=== PATIENT | female | born 1975 | race Caucasian/White ===

== ENCOUNTER → 2017-08-30 16:09 | Outpatient (CLI) | payer OTHER, MEDICAID, SELFPAY ==
[2017-08-30 17:12] LABS: Appearance Urine UA CLEAR; Bilirubin Urine UA NEGATIVE (NEGATIVE); Color Urine UA YELLOW; Glucose Urine UA NEGATIVE (Normal); Ketones Urine UA NEGATIVE (NEGATIVE); Leukocyte Esterase Urine UA TRACE (NEGATIVE); Nitrite Urine UA NEGATIVE (NEGATIVE); Occult Blood Urine UA NEGATIVE (Negative); Protein Urine UA NEGATIVE (Negative); Specific Gravity Urine UA 1.015 (1.000-1.035); Urobilinogen Urine UA 0.2 E.U./dL (0.2); pH Urine UA 6.5 (4.5-8.0)
[2017-08-30 17:23] LABS: Bacteria Urine None Seen; Culture Indicated Urine Cult Not Indicated; RBC Urine 0-1/HPF (0-5/HPF); Squamous Epithelial Cell Urine 1-5 /HPF; WBC Urine 1-5/HPF (0-5/HPF)
== END ==
PROVIDERS: PCP Family Medicine; Visit Provider Family Medicine
DX: R30.9 Painful micturition, unspecified (principal)
CPT/HCPCS: 81001

== ENCOUNTER → 2018-01-26 07:51 | Outpatient (CLI) | payer OTHER, MEDICAID, SELFPAY ==
[2018-01-26 08:32] LABS: Add Manual Diff / Slide Review NO; Basophils Percent Auto 1.4 % (0-2); Eosinophils Percent Auto 2.9 % (2-4); Hematocrit 36.3 % (36-46); Hemoglobin 12.2 g/dL (12.0-16.0); Lymphocytes Percent Auto 44.3 % (25-40); Mean Corpuscular HGB Conc 33.5 % (30-36); Mean Corpuscular Hemoglobin 29.1 PG (26-34); Mean Corpuscular Volume 86.8 fL (80-100); Monocytes Percent Auto 9.9 % (3-14); Neutrophils Absolute Auto 1700 /uL (3000-5900); Neutrophils Percent Auto 41.5 % (50-75); Platelet Count 180 X10^3/uL (150-400); Red Blood Cell Count 4.18 X10^6/uL (4.0-5.2); Red Cell Distribution Width 16.1 % (11.6-14.8); White Blood Cell Count 4.1 X10^3/uL (4.5-11.0)
[2018-01-26 08:57] LABS: Alanine Aminotransferase 25 IU/L (9-52); Albumin 4.2 g/dL (3.5-5.0); Albumin Globulin Ratio 1.6 (1.0-2.8); Alkaline Phosphatase 35 U/L (38-126); Aspartate Aminotransferase 23 IU/L (14-36); BUN Creatinine Ratio 17.1 (6-22); Bilirubin Total 0.6 mg/dL (0.2-1.3); Blood Urea Nitrogen 12 mg/dL (7-17); Calcium 8.7 mg/dL (8.4-10.2); Carbon Dioxide 30 mmol/L (22-32); Chloride 103 mmol/L (98-107); Cholesterol 131 mg/dL (140-199); Estimated Glomerular Filt Rate > 60.0 mL/min (>60); Globulin 2.7 g/dL (1.7-4.1); Glucose 85 mg/dL (70-100); HDL Cholesterol 62 mg/dL (40-60); HEMOLYSIS < 15 (0-50); LDL Cholesterol Calculated 62 mg/dL (<100); Potassium 4.4 mmol/L (3.4-5.1); Sodium 142 mmol/L (137-145); Total Protein 6.9 g/dL (6.3-8.2); Triglycerides 37 mg/dL (35-150)
[2018-01-26 09:37] LABS: TSH w/ Reflex to FT4 0.98 uIU/mL (0.47-4.68)
== END ==
PROVIDERS: PCP Family Medicine; Visit Provider Family Medicine
DX: K51.90 Ulcerative colitis, unspecified, without complications (principal); Z00.00 Encounter for general adult medical examination without abnormal findings
CPT/HCPCS: 36415; 80053; 80061; 84443; 85025

== ENCOUNTER → 2018-02-25 17:06 | Outpatient (CLI) | payer OTHER, MEDICAID, SELFPAY | PROVIDERS: Family Provider Obstetrics & Gynecology; PCP Family Medicine; Visit Provider Family Medicine | DX: N92.6 Irregular menstruation, unspecified (principal) | CPT/HCPCS: 36415; 83001; 83002 ==

== ENCOUNTER → 2018-03-08 11:48 | Outpatient (CLI) | payer OTHER, MEDICAID, SELFPAY ==
--- NOTE | 2018-03-08 11:50 | DI.MG.S_ITS ---
BILATERAL DIGITAL SCREENING MAMMOGRAM 3D/2D WITH CAD: 03/08/2018 CLINICAL: Routine screening. Comparison is made to exam dated: 11/20/2016 [facility]. The tissue of both breasts is extremely dense, which lowers the sensitivity of mammography. Current study was also evaluated with a Computer Aided Detection (CAD) system. No significant masses, calcifications, or other findings are seen in either breast. There has been no significant interval change. IMPRESSION: NEGATIVE There is no mammographic evidence of malignancy. A 1 year screening mammogram is recommended. This exam was interpreted at Station ID: [id number]. NOTE: For mammograms, a report in lay terms will be sent to the patient. Approximately 15% of breast malignancies will not be visualized mammographically. In the management of a palpable breast mass, a negative mammogram must not discourage biopsy of a clinically suspicious lesion. Electronically Signed By: Reji elizabeth/vandana:03/08/2018 20:45:46 copy to: Jeremy Greene letter sent: Normal Exam ACR BI-RADS Category 1: Negative 3341F
[2018-03-10 16:05] LABS: Progesterone 9.9 ng/mL
== END ==
PROVIDERS: PCP Family Medicine; Visit Provider Family Medicine
DX: Z12.31 Encounter for screening mammogram for malignant neoplasm of breast (principal); N92.6 Irregular menstruation, unspecified
CPT/HCPCS: 36415; 77063; 77067; 84144

== ENCOUNTER → 2018-05-25 10:12 | Outpatient (CLI) | payer OTHER, SELFPAY ==
[2018-05-25 11:00] LABS: Appearance Urine UA CLEAR; Bilirubin Urine UA NEGATIVE (NEGATIVE); Color Urine UA YELLOW; Glucose Urine UA NEGATIVE (Negative); Ketones Urine UA NEGATIVE (NEGATIVE); Leukocyte Esterase Urine UA NEGATIVE (NEGATIVE); Nitrite Urine UA NEGATIVE (Negative); Occult Blood Urine UA NEGATIVE (Negative); Protein Urine UA NEGATIVE (Negative); Urobilinogen Urine UA 0.2 E.U./dL (0.2); pH Urine UA 7.5 (4.5-8.0)
== END ==
PROVIDERS: PCP Family Medicine; Visit Provider Family Medicine
DX: R30.0 Dysuria (principal)
CPT/HCPCS: 81003

== ENCOUNTER → 2019-02-03 07:49 | Outpatient (CLI) | payer OTHER, SELFPAY ==
[2019-02-03 08:20] LABS: Add Manual Diff / Slide Review NO; Basophils Absolute Auto 100 /uL (0-100); Basophils Percent Auto 1.3 % (0-2); Eosinophils Absolute Auto 100 /uL (0-450); Eosinophils Percent Auto 3.4 % (2-4); Hematocrit 37.2 % (36-46); Hemoglobin 12.5 g/dL (12.0-16.0); Lymphocytes Absolute Auto 1600 /uL (1100-4500); Mean Corpuscular HGB Conc 33.6 % (30-36); Mean Corpuscular Hemoglobin 29.3 PG (26-34); Mean Corpuscular Volume 87.4 fL (80-100); Monocytes Absolute Auto 400 /uL (0-900); Monocytes Percent Auto 9.6 % (3-14); Neutrophils Absolute Auto 1700 /uL (1500-7000); Neutrophils Percent Auto 43.7 % (50-75); Platelet Count 193 X10^3/uL (150-400); Red Blood Cell Count 4.26 X10^6/uL (4.0-5.2); Red Cell Distribution Width 15.8 % (11.6-14.8); White Blood Cell Count 3.9 X10^3/uL (4.5-11.0)
[2019-02-03 08:33] LABS: Erythrocyte Sedimentation Rate 9 MM/HR (0-20)
[2019-02-03 08:38] LABS: Alanine Aminotransferase 29 IU/L (9-52); Albumin 4.1 g/dL (3.5-5.0); Albumin Globulin Ratio 1.3 (1.0-2.8); Alkaline Phosphatase 36 U/L (38-126); Aspartate Aminotransferase 31 IU/L (14-36); BUN Creatinine Ratio 12.9 (6-22); Bilirubin Total 0.9 mg/dL (0.2-1.3); Blood Urea Nitrogen 9 mg/dL (7-17); Calcium 8.8 mg/dL (8.4-10.2); Carbon Dioxide 28 mmol/L (22-32); Chloride 102 mmol/L (98-107); Estimated Glomerular Filt Rate > 60.0 mL/min (>60); Globulin 3.1 g/dL (1.7-4.1); Glucose 88 mg/dL (70-100); HEMOLYSIS < 15 (0-50); Potassium 4.3 mmol/L (3.4-5.1); Sodium 139 mmol/L (137-145); Total Protein 7.2 g/dL (6.3-8.2)
[2019-02-03 09:06] LABS: Follicle Stimulating Hormone 8.77 mIU/mL
[2019-02-03 09:22] LABS: Vitamin B12 528 pg/mL (239-931)
[2019-02-03 09:23] LABS: Vitamin D 25 Hydroxy (D3) 66.2 ng/mL (30.0-100.0)
[2019-02-03 09:25] LABS: TSH w/ Reflex to FT4 1.17 uIU/mL (0.47-4.68)
[2019-02-03 09:32] LABS: C-Reactive Protein Quant < 0.5 mg/dL (<1.0)
== END ==
PROVIDERS: PCP Family Medicine; Visit Provider Family Medicine
DX: K51.90 Ulcerative colitis, unspecified, without complications (principal); K52.9 Noninfective gastroenteritis and colitis, unspecified; Z79.899 Other long term (current) drug therapy
CPT/HCPCS: 36415; 80053; 82306; 82607; 83001; 83002; 84443; 85025; 85651; 86140

== ENCOUNTER → 2019-09-18 15:00 | Outpatient (CLI) | payer OTHER, SELFPAY ==
[2019-09-20 08:36] LABS: COVID19 Sendout Not Detected (Not Detected)
== END ==
PROVIDERS: PCP Family Medicine; Visit Provider Registered Nurse
DX: J02.9 Acute pharyngitis, unspecified (principal)
CPT/HCPCS: 87635

== ENCOUNTER → 2020-01-29 10:47 | Outpatient (CLI) | payer OTHER, SELFPAY ==
--- NOTE | 2020-01-29 10:48 | DI.MG.S_ITS ---
BILATERAL DIGITAL SCREENING MAMMOGRAM 3D/2D WITH CAD: 01/29/2020 CLINICAL: Routine screening. Comparison is made to exams dated: 03/08/2018 mammogram and 11/20/2016 mammogram - [facility]. The tissue of both breasts is extremely dense, which lowers the sensitivity of mammography. Current study was also evaluated with a Computer Aided Detection (CAD) system. No significant masses, calcifications, or other findings are seen in either breast. There has been no significant interval change. IMPRESSION: NEGATIVE There is no mammographic evidence of malignancy. A 1 year screening mammogram is recommended. This exam was interpreted at Station ID: [id number]. NOTE: For mammograms, a report in lay terms will be sent to the patient. Approximately 15% of breast malignancies will not be visualized mammographically. In the management of a palpable breast mass, a negative mammogram must not discourage biopsy of a clinically suspicious lesion. Electronically Signed By: Devante koroma/vandana:01/29/2020 15:47:50 copy to: Jeremy Greene letter sent: Normal Exam ACR BI-RADS Category 1: Negative 3341F
== END ==
PROVIDERS: PCP Family Medicine; Referring Provider Obstetrics & Gynecology; Visit Provider Obstetrics & Gynecology
DX: Z12.31 Encounter for screening mammogram for malignant neoplasm of breast (principal)
CPT/HCPCS: 77063; 77067

== ENCOUNTER → 2020-07-18 11:23 | Outpatient (CLI) | payer OTHER, SELFPAY ==
[2020-07-18] MEDS: COVID-19 VACC, Ad26(JANSSEN)/PF 0.5 ML IM (11:30)
== END ==
PROVIDERS: PCP Family Medicine; Visit Provider Internal Medicine
DX: Z23 Encounter for immunization (principal)
CPT/HCPCS: 0031A; 91303

== ENCOUNTER → 2020-11-26 15:26 | Outpatient (CLI) | payer OTHER, SELFPAY ==
--- NOTE | 2020-11-26 15:28 | DI.US.S_ITS ---
PROCEDURE: US PELVIC COMPLETE INDICATIONS: DYSFUNCTIONAL BLEEDING TECHNIQUE: Real-time scanning was performed of the pelvic organs, with image documentation. Additional endovaginal scanning was necessary due to incomplete visualization of the adnexal and endometrial structures by transabdominal scanning. COMPARISON: [facility], , PELVIC COMPLETE, 11/09/2016, 13:40. FINDINGS: Uterus: Uterus is normal in size at 8.2 x 4.7 x 5.7 cm. The endometrium measures 6.6 mm in combined thickness. Submucosal fibroid measuring 6 mm. Intramural fibroid measuring 9 mm. Subserosal fibroid measuring 3.9 cm. Ovaries: 1.8 cm dominant left follicular cyst; otherwise the ovaries are normal bilaterally. No adnexal masses seen. Other: No pathologic free abdominal or pelvic fluid. IMPRESSION: 3 fibroids, largest measuring up to 3.9 cm. Dictated by: Toribio GILBERT Interpreted: Juanito Bains MD on 11/26/2020 at 16:19 Transcribed by: ALBERT on 11/26/2020 at 16:20 Approved by: Eric Lantigua M.D. on 11/27/2020 at 13:36
== END ==
PROVIDERS: PCP Family Medicine; Referring Provider Obstetrics & Gynecology; Visit Provider Obstetrics & Gynecology
DX: N93.8 Other specified abnormal uterine and vaginal bleeding (principal); N92.1 Excessive and frequent menstruation with irregular cycle; D25.1 Intramural leiomyoma of uterus; D25.0 Submucous leiomyoma of uterus; D25.2 Subserosal leiomyoma of uterus
CPT/HCPCS: 76830; 76856

== ENCOUNTER → 2021-03-23 14:54 | Outpatient (CLI) | payer OTHER, SELFPAY ==
[2021-03-23 15:32] LABS: COVID19 -Nasal RAPID Negative (Negative)
== END ==
PROVIDERS: PCP Family Medicine; Visit Provider Nurse Practitioner Family
DX: Z20.822 Contact with and (suspected) exposure to COVID-19 (principal)
CPT/HCPCS: 87635

== ENCOUNTER → 2021-04-06 10:26 | Outpatient (CLI) | payer OTHER, SELFPAY ==
[2021-04-06 11:11] LABS: COVID19 -Nasal RAPID POSITIVE (Negative)
== END ==
PROVIDERS: PCP Family Medicine; Referring Provider Physician Assistant; Visit Provider Physician Assistant
DX: Z20.822 Contact with and (suspected) exposure to COVID-19 (principal); J02.9 Acute pharyngitis, unspecified
CPT/HCPCS: 87635

== ENCOUNTER → 2021-10-08 07:22 | Outpatient (CLI) | payer OTHER, SELFPAY ==
[2021-10-08 08:14] LABS: Add Manual Diff / Slide Review NO; Basophils Absolute Auto 100 /uL (0-100); Basophils Percent Auto 1.1 % (0-2); Eosinophils Absolute Auto 200 /uL (0-450); Eosinophils Percent Auto 5.5 % (2-4); Hematocrit 37.6 % (36-46); Hemoglobin 12.8 g/dL (12.0-16.0); Lymphocytes Absolute Auto 1800 /uL (1100-4500); Lymphocytes Percent Auto 39.4 % (25-40); Mean Corpuscular HGB Conc 34.1 % (30-36); Mean Corpuscular Hemoglobin 30.3 PG (26-34); Mean Corpuscular Volume 88.6 fL (80-100); Monocytes Absolute Auto 500 /uL (0-900); Monocytes Percent Auto 10.5 % (3-14); Neutrophils Absolute Auto 1900 /uL (1500-7000); Neutrophils Percent Auto 43.5 % (50-75); Platelet Count 160 X10^3/uL (150-400); Red Blood Cell Count 4.24 X10^6/uL (4.0-5.2); Red Cell Distribution Width 15.2 % (11.6-14.8); White Blood Cell Count 4.5 X10^3/uL (4.5-11.0)
[2021-10-08 08:41] LABS: Alanine Aminotransferase 16 IU/L (<35); Albumin 3.9 g/dL (3.5-5.0); Albumin Globulin Ratio 1.3 (1.0-2.8); Alkaline Phosphatase 39 U/L (38-126); Aspartate Aminotransferase 23 IU/L (14-36); BUN Creatinine Ratio 15.7 (6-22); Bilirubin Total 0.5 mg/dL (0.2-1.3); Blood Urea Nitrogen 11 mg/dL (7-17); Calcium 8.4 mg/dL (8.4-10.2); Carbon Dioxide 27 mmol/L (22-32); Chloride 102 mmol/L (98-107); Cholesterol 151 mg/dL (140-199); Estimated Glomerular Filt Rate > 60 mL/min (>60); Globulin 2.9 g/dL (1.7-4.1); Glucose 84 mg/dL (70-100); HDL Cholesterol 80 mg/dL (40-60); HEMOLYSIS < 15 (0-50); LDL Cholesterol Calculated 58 mg/dL (<100); Potassium 4.2 mmol/L (3.4-5.1); Sodium 136 mmol/L (137-145); Total Protein 6.8 g/dL (6.3-8.2); Triglycerides 67 mg/dL (35-150)
== END ==
PROVIDERS: PCP Family Medicine; Referring Provider Physician Assistant; Visit Provider Physician Assistant
DX: Z13.220 Encounter for screening for lipoid disorders (principal); K51.90 Ulcerative colitis, unspecified, without complications
CPT/HCPCS: 36415; 80053; 80061; 85025

== ENCOUNTER → 2021-11-08 10:28 | Outpatient (CLI) | payer OTHER, SELFPAY ==
[2021-11-08 11:44] LABS: TSH w/ Reflex to FT4 1.04 uIU/mL (0.47-4.68)
[2021-11-08 12:02] LABS: Vitamin B12 415 pg/mL (239-931)
[2021-11-27 17:06] LABS: Vitamin D 25 Hydroxy (D3) 75.6 ng/mL (30.0-100.0)
== END ==
PROVIDERS: PCP Family Medicine; Referring Provider Physician Assistant; Visit Provider Physician Assistant
DX: E55.9 Vitamin D deficiency, unspecified (principal); K51.90 Ulcerative colitis, unspecified, without complications; R53.83 Other fatigue
CPT/HCPCS: 36415; 82306; 82607; 84443

== ENCOUNTER → 2022-01-10 11:01 | Outpatient (CLI) | payer OTHER, SELFPAY ==
[2022-01-10 15:10] LABS: Follicle Stimulating Hormone 52.8 mIU/mL; Progesterone, Total 0.33 ng/mL
[2022-01-13 11:44] LABS: Estrogen 77 pg/mL (.)
== END ==
PROVIDERS: Family Provider Family Medicine; PCP Family Medicine; Referring Provider Physician Assistant; Visit Provider Physician Assistant
DX: N92.6 Irregular menstruation, unspecified (principal)
CPT/HCPCS: 36415; 82672; 83001; 84144

== ENCOUNTER 2022-03-12 16:45 | Outpatient (RCR) | payer OTHER, SELFPAY ==
--- NOTE | 2022-02-19 16:33 | PT.OIE ---
Current Diagnoses Pain in left shoulder (02/19/22) Past Medical History (Last Reviewed 10/22/21 @ 07:35 by Vicky Leon PA-C) Bandemia Herpes Ulcerative colitis Vulvodynia Past Surgical History (Last Reviewed 10/22/21 @ 07:35 by Vicky Leon PA-C) History of surgery (~1991) History of third molar tooth extraction (~1987) Status post delivery (~1997) Visit Care Team Role Provider Type Jeremy Greene MD Attending Provider Physician Family Provider Primary Care Provider Referring Provider Specialty: Family Practice Address: [address] [place] [address] Email: [email or web address] Physical Therapy Initial Evaluation PT-OP-A Visit Information Start: 02/19/22 15:16 Freq: Status: Active Protocol: Document 02/19/22 11:15 DCW (Rec: 02/19/22 15:28 DCW [id number]) Out-Patient Physical Therapy Visit Information Visit Information Visit Type Initial Evaluation Visit Start Time 11:15 Visit Stop Time 11:50 Total Visit Minutes 35 Visit Number 1 Number of MAMMOGRAPHY TECH Visits 0 Evaluation Information Evaluation Date 02/19/22 PT-OP-B Current Condition Start: 02/19/22 15:16 Freq: Status: Active Protocol: Document 02/19/22 11:15 DCW (Rec: 02/19/22 15:28 DCW [id number]) Current Condition History of Current Condition Onset Date ~2 month history Current Complaints Left shoulder pain History of Current Condition Pt is a 46 year old female presenting to skilled PT following increased pain ~2 months ago secondary to overuse. 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 Pt reports that since the initial injury, she has improved greatly, and is already nearing her prior baseline. Admits she feels silly coming in for PT, since she is doing so well, but wanted to at least come a few times to figure out what she can do to strengthen her shoulder and prevent this from happening again. Treatment Goals Patient/Caregiver Goals Return to 100% work duties without increased shoulder pain. PT-OP-C Subjective Start: 02/19/22 15:16 Freq: Status: Active Protocol: Document 02/19/22 11:15 DCW (Rec: 02/19/22 15:28 DCW [id number]) OP-PT Subjective Patient Comments Patient Comments I want to be able to work at least another five years, so I don't want this to be a lingering problem. Patient Questionnaires Quick Dash- Upper Extremity Quick Dash UE Score 13.64% Quick Dash UE Impairment 1 to 19% Impaired (Score 1-19) PT-OP-E Functional Tests Start: 02/19/22 15:16 Freq: Status: Active Protocol: Document 02/19/22 11:15 DCW (Rec: 02/19/22 16:33 DCW [id number]) Functional Tests Apley's Scratch Test Action 1- Left Posterior opposite shoulder Action 1- Right Posterior opposite shoulder Action 2- Left T3 Action 2- Right T3 Action 3- Left T9 Action 3- Right T6 PT-OP-K Range of Motion Start: 02/19/22 15:16 Freq: Status: Active Protocol: Document 02/19/22 11:15 DCW (Rec: 02/19/22 16:33 DCW [id number]) Shoulder Goniometric Range of Motion Shoulder Right Active Shoulder ROM WFL Yes Testing Position Sitting Flexion 180 Abduction 180 External Rotation at 0 degrees Abduction 75 Internal Rotation Behind Back (text) T6 Left Active Shoulder ROM WFL Yes Testing Position Sitting Flexion 180 Abduction 180 External Rotation at 0 degrees Abduction 75 Internal Rotation Behind Back (text) T9 PT-OP-L Special Tests Start: 02/19/22 15:16 Freq: Status: Active Protocol: Document 02/19/22 11:15 DCW (Rec: 02/19/22 16:33 DCW [id number]) Special Tests Shoulder Special Tests Yergason's Biceps Test Results Negative Speed's Biceps Test Results Negative Passive ER Rotator Cuff Test Results Negative Lift-Off Rotator Cuff Test Results Mild soreness left [place] Impingement Test Results Mild soreness left Empty Can Test Results Negative Drop Arm Rotator Cuff Test Results Negative Belly Press Test Results Mild soreness left AC Joint Compression Test Results Negative PT-OP-M Strength Start: 02/19/22 15:16 Freq: Status: Active Protocol: Document 02/19/22 11:15 DCW (Rec: 02/19/22 16:33 DCW [id number]) Shoulder Strength Shoulder Manual Muscle Testing Right Flexion 5 Normal Abduction (C5) 5 Normal External Rotation 5 Normal Internal Rotation 5 Normal Left Flexion 4+ Good+ Abduction (C5) 4+ Good+ External Rotation 4+ Good+ Internal Rotation 4+ Good+ PT-OP-Q Treatments Start: 02/19/22 15:16 Freq: Status: Active Protocol: Document 02/19/22 11:15 DCW (Rec: 02/19/22 16:33 [facility] [id number]) Therapeutic Exercises Standing Exercises Shoulder Extension Standing Exercise Name Shoulder Extension Side left Resistance Lv 3 Shoulder Adduction Standing Exercise Name Shoulder Adduction Side left Resistance Lv 3 Shoulder Flexion Standing Exercise Name Shoulder Flexion Side left Resistance Lv 3 Shoulder Abduction Standing Exercise Name Shoulder Abduction Side left Resistance Lv 3 Shoulder IR/ER Standing Exercise Name IR/ER Side left Resistance Lv 3 Pec Stretch Standing Exercise Name Corner pec stretch Side bilateral PT-OP-T Assessment and Plan Start: 02/19/22 15:16 Freq: Status: Active Protocol: Document 02/19/22 11:15 DCW (Rec: 02/19/22 16:33 DC [id number]) Physical Therapy Assessment Rehab Potential Rehabilitation Potential Excellent Evaluation Complexity Number of Personal Factors/Comorbidities 0 Number of Body Systems Impaired 1-2 Clinical Presentation at Evaluation Stable Impairments Impairments Strength Goals One Impairment Pt does not have an appropriate home exercise program Short Term Goal (STG) Pt to be independent and compliant with an appropriate HEP STG Duration 03/19/22 Assessment Summary Assessment Pt presents to skilled therapy two months s/p left shoulder injury. Pt is nearly entirely asymptomatic at this time, and is doing very well healing independently. Pt exhibits some mild discomfort in some positions, mainly positions that create subacromial impingement of the supraspinatus, which was her referring diagnosis originally . Pt has does well with rest and limiting repetitive motions, and is mainly just looking for advice on how to strengthen and stabilize her shoulder girdle in order to limit the possibility that this occurs again. Pt was given an HEP focusing on improving shoulder r/c strength. Will likely benefit from another 1-2 visits in order to ensure she continues to improve as expected and does not have any issues with the HEP. Pt will likely be discharged following a few visits, barring unexpected set -backs. Physical Therapy Plan Frequency and Duration Frequency of Treatment 1-2x/week Duration of treatment (weeks) 4 Plan of Care Start Date 02/19/22 Plan of Care End Date 03/19/22 Therapeutic Interventions Therapeutic Interventions Home Exercise Program,Joint Mobilizations,Patient/ Caregiver Education,Self-Care/ Home Management,Soft Tissue Mobilization,Therapeutic Activities,Therapeutic Exercises Modalities Cold Pack/Ice Massage,Hot Packs Next Visit Focus/Plan Next Note Type Treatment Note Next Visit Plan Shoulder strengthening, HEP review
--- NOTE | 2022-02-19 16:33 | PT.OPPOC ---
Physical, Occupational & Speech Therapy At [facility] Current Diagnoses Pain in left shoulder (02/19/22) Visit Care Team Role Provider Type Jeremy Greene MD Attending Provider Physician Family Provider Primary Care Provider Referring Provider Specialty: Family Practice Address: [address] [place] [address], [id number] Email: [email or web address] Plan Of Care PT-OP-T Assessment and Plan Start: 02/19/22 15:16 Freq: Status: Active Protocol: Document 02/19/22 11:15 DCW (Rec: 02/19/22 16:33 DCW [id number]) Physical Therapy Assessment Rehab Potential Rehabilitation Potential Excellent Evaluation Complexity Number of Personal Factors/Comorbidities 0 Number of Body Systems Impaired 1-2 Clinical Presentation at Evaluation Stable Impairments Impairments Strength Goals One Impairment Pt does not have an appropriate home exercise program Short Term Goal (STG) Pt to be independent and compliant with an appropriate HEP STG Duration 03/19/22 Assessment Summary Assessment Pt presents to skilled therapy two months s/p left shoulder injury. Pt is nearly entirely asymptomatic at this time, and is doing very well healing independently. Pt exhibits some mild discomfort in some positions, mainly positions that create subacromial impingement of the supraspinatus, which was her referring diagnosis originally . Pt has does well with rest and limiting repetitive motions, and is mainly just looking for advice on how to strengthen and stabilize her shoulder girdle in order to limit the possibility that this occurs again. Pt was given an HEP focusing on improving shoulder r/c strength. Will likely benefit from another 1-2 visits in order to ensure she continues to improve as expected and does not have any issues with the HEP. Pt will likely be discharged following a few visits, barring unexpected set -backs. Physical Therapy Plan Frequency and Duration Frequency of Treatment 1-2x/week Duration of treatment (weeks) 4 Plan of Care Start Date 02/19/22 Plan of Care End Date 03/19/22 Therapeutic Interventions Therapeutic Interventions Home Exercise Program,Joint Mobilizations,Patient/ Caregiver Education,Self-Care/ Home Management,Soft Tissue Mobilization,Therapeutic Activities,Therapeutic Exercises Modalities Cold Pack/Ice Massage,Hot Packs Next Visit Focus/Plan Next Note Type Treatment Note Next Visit Plan Shoulder strengthening, HEP review Plan of Care Dates Plan of Care Start Date 02/19/22 Plan of Care End Date 03/19/22 Electronically Signed by: Camacho Topete, PT 02/19/22 2738 If you are in agreement with this Plan of Care, please return a signed and dated copy. I have reviewed this Plan of Care and certify that the skilled therapy services above are required to meet the patient?s needs. Physician Signature Date Printed Name and Credentials Clinical Instructor Signature Printed Name and Credentials
--- NOTE | 2022-03-02 17:49 | PT.OTN ---
Current Diagnoses Pain in left shoulder (03/02/22) Physical Therapy Treatment Note PT-OP-A Visit Information Start: 02/19/22 15:16 Freq: Status: Active Protocol: Document 03/02/22 16:45 NBM (Rec: 03/02/22 17:44 [facility] [id number]) Out-Patient Physical Therapy Visit Information Visit Information Visit Type Treatment Note Visit Start Time 16:05 Visit Stop Time 16:45 Total Visit Minutes 40 Visit Number 2 Number of WATER TREATMENT OPERATOR Visits 1 PT-OP-B Current Condition Start: 02/19/22 15:16 Freq: Status: Active Protocol: Document 02/19/22 11:15 DCW (Rec: 02/19/22 15:28 DCW [id number]) Current Condition History of Current Condition Onset Date ~2 month history Current Complaints Left shoulder pain History of Current Condition Pt is a 46 year old female presenting to skilled PT following increased pain ~2 months ago secondary to overuse. 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 Pt reports that since the initial injury, she has improved greatly, and is already nearing her prior baseline. Admits she feels silly coming in for PT, since she is doing so well, but wanted to at least come a few times to figure out what she can do to strengthen her shoulder and prevent this from happening again. Treatment Goals Patient/Caregiver Goals Return to 100% work duties without increased shoulder pain. PT-OP-C Subjective Start: 02/19/22 15:16 Freq: Status: Active Protocol: Document 03/02/22 16:45 NBM (Rec: 03/02/22 17:44 [facility] [id number]) OP-PT Subjective Patient Comments Patient Comments Pt reports she has been doing her HEP but her L shoulder is a bit more sore and painful. PT-OP-E Functional Tests Start: 02/19/22 15:16 Freq: Status: Active Protocol: Document 02/19/22 11:15 DCW (Rec: 02/19/22 16:33 DCW [id number]) Functional Tests Apley's Scratch Test Action 1- Left Posterior opposite shoulder Action 1- Right Posterior opposite shoulder Action 2- Left T3 Action 2- Right T3 Action 3- Left T9 Action 3- Right T6 PT-OP-K Range of Motion Start: 02/19/22 15:16 Freq: Status: Active Protocol: Document 02/19/22 11:15 DCW (Rec: 02/19/22 16:33 DCW [id number]) Shoulder Goniometric Range of Motion Shoulder Right Active Shoulder ROM WFL Yes Testing Position Sitting Flexion 180 Abduction 180 External Rotation at 0 degrees Abduction 75 Internal Rotation Behind Back (text) T6 Left Active Shoulder ROM WFL Yes Testing Position Sitting Flexion 180 Abduction 180 External Rotation at 0 degrees Abduction 75 Internal Rotation Behind Back (text) T9 PT-OP-L Special Tests Start: 02/19/22 15:16 Freq: Status: Active Protocol: Document 02/19/22 11:15 DCW (Rec: 02/19/22 16:33 DCW [id number]) Special Tests Shoulder Special Tests Yergason's Biceps Test Results Negative Speed's Biceps Test Results Negative Passive ER Rotator Cuff Test Results Negative Lift-Off Rotator Cuff Test Results Mild soreness left [place] Impingement Test Results Mild soreness left Empty Can Test Results Negative Drop Arm Rotator Cuff Test Results Negative Belly Press Test Results Mild soreness left AC Joint Compression Test Results Negative PT-OP-M Strength Start: 02/19/22 15:16 Freq: Status: Active Protocol: Document 02/19/22 11:15 DCW (Rec: 02/19/22 16:33 DCW [id number]) Shoulder Strength Shoulder Manual Muscle Testing Right Flexion 5 Normal Abduction (C5) 5 Normal External Rotation 5 Normal Internal Rotation 5 Normal Left Flexion 4+ Good+ Abduction (C5) 4+ Good+ External Rotation 4+ Good+ Internal Rotation 4+ Good+ PT-OP-Q Treatments Start: 02/19/22 15:16 Freq: Status: Active Protocol: Document 03/02/22 16:45 NBM (Rec: 03/02/22 17:44 NBM [id number]) Therapeutic Exercises Standing Exercises Shoulder Extension Standing Exercise Name Shoulder Extension Side left Resistance Lv 3 Shoulder Adduction Standing Exercise Name Shoulder Adduction Side left Resistance Lv 3 Shoulder Flexion Standing Exercise Name Shoulder Flexion Side left Resistance Lv 3 Shoulder Abduction Standing Exercise Name Shoulder Abduction Side left Resistance Lv 3 Shoulder IR/ER Standing Exercise Name IR/ER Side left Resistance Lv 3 Pec Stretch Standing Exercise Name Corner pec stretch - varying angles Side bilateral Comments good feedback response Manual Therapy Treatment Soft Tissue Mobilization Shoulder Body Location L UT, LS, Scalenes, Rhomboids Mobilization Type Rolling,Strumming,Sustained Pressure,Trigger Point Release ,Other Intensity/Depth Moderate Body Position Hooklying Comments manual pin and stretch to UT Isaiah and L LS Cervical Body Location paraspinals, SO Mobilization Type Rolling,Strumming,Sustained Pressure,Trigger Point Release ,Other Intensity/Depth Moderate Body Position Hooklying Comments manual cervical traction 2x30s ; SO release Self-Care/Home Management Treatment Education Patient Education Home Exercise Program,Joint Protection,Pain Management, Posture Other Education HEP review with emphasis on scapular setting/posture before initiating exercise due to L Upper trapezius mm overactivation. Demonstrated how to use Tband w/ anchor loop for marita ext ex. Discussed use of ice or heat for pain management and not to push through pain. PT-OP-R Modalities Start: 03/02/22 17:45 Freq: Status: Active Protocol: Document 03/02/22 16:45 NBM (Rec: 03/02/22 17:47 NBM [id number]) Hot Pack/Cold Pack Treatment Cold Pack Location L shoulder Patient Position Hooklying Treatment Duration (minutes) 10 Patient Tolerance Good PT-OP-T Assessment and Plan Start: 02/19/22 15:16 Freq: Status: Active Protocol: Document 03/02/22 16:45 NBM (Rec: 03/02/22 17:44 NB [id number]) Physical Therapy Assessment Goals One Impairment Pt does not have an appropriate home exercise program Short Term Goal (STG) Pt to be independent and compliant with an appropriate HEP STG Duration 03/19/22 Assessment Summary Assessment Treatment focus on HEP review, education and manual therapy. Pt requires postural education for scapular setting and UT overactivation L>R initially but demonstrates improved self-awareness with repetition by end of session. Pt has good feedback response to 3-way doorway pec stretch and reduced palpable tension to L Upper trapezius and Levator scapula with manual therapy. Pt may benefit from cervical stretches next visit. Physical Therapy Plan Frequency and Duration Frequency of Treatment 1-2x/week Duration of treatment (weeks) 4 Plan of Care Start Date 02/19/22 Plan of Care End Date 03/19/22 Therapeutic Interventions Therapeutic Interventions Home Exercise Program,Joint Mobilizations,Patient/ Caregiver Education,Self-Care/ Home Management,Soft Tissue Mobilization,Therapeutic Activities,Therapeutic Exercises Modalities Cold Pack/Ice Massage,Hot Packs Next Visit Focus/Plan Next Note Type Treatment Note Next Visit Plan Provide cervical stretches (LS , UT) and consider for HEP. Shoulder strengthening, HEP review
--- NOTE | 2022-03-12 17:30 | PT.OTN ---
Current Diagnoses Pain in left shoulder (03/12/22) Physical Therapy Treatment Note PT-OP-A Visit Information Start: 02/19/22 15:16 Freq: Status: Active Protocol: Document 03/12/22 16:45 DCW (Rec: 03/12/22 17:30 DCW [id number]) Out-Patient Physical Therapy Visit Information Visit Information Visit Type Treatment Note Visit Start Time 16:45 Visit Stop Time 17:30 Total Visit Minutes 45 Visit Number 3 Number of CROP SPECIALIST Visits 0 Evaluation Information Evaluation Date 02/19/22 PT-OP-B Current Condition Start: 02/19/22 15:16 Freq: Status: Active Protocol: Document 02/19/22 11:15 DCW (Rec: 02/19/22 15:28 DCW [id number]) Current Condition History of Current Condition Onset Date ~2 month history Current Complaints Left shoulder pain History of Current Condition Pt is a 46 year old female presenting to skilled PT following increased pain ~2 months ago secondary to overuse. 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 Pt reports that since the initial injury, she has improved greatly, and is already nearing her prior baseline. Admits she feels silly coming in for PT, since she is doing so well, but wanted to at least come a few times to figure out what she can do to strengthen her shoulder and prevent this from happening again. Treatment Goals Patient/Caregiver Goals Return to 100% work duties without increased shoulder pain. PT-OP-C Subjective Start: 02/19/22 15:16 Freq: Status: Active Protocol: Document 03/12/22 16:45 DCW (Rec: 03/12/22 17:29 DCW [id number]) OP-PT Subjective Patient Comments Patient Comments Pt reports she is fine, I think it's just going to be more of a management thing. Did some painting yesterday, felt it a little. PT-OP-E Functional Tests Start: 02/19/22 15:16 Freq: Status: Active Protocol: Document 02/19/22 11:15 DCW (Rec: 02/19/22 16:33 DCW [id number]) Functional Tests Apley's Scratch Test Action 1- Left Posterior opposite shoulder Action 1- Right Posterior opposite shoulder Action 2- Left T3 Action 2- Right T3 Action 3- Left T9 Action 3- Right T6 PT-OP-K Range of Motion Start: 02/19/22 15:16 Freq: Status: Active Protocol: Document 02/19/22 11:15 DCW (Rec: 02/19/22 16:33 DCW [id number]) Shoulder Goniometric Range of Motion Shoulder Right Active Shoulder ROM WFL Yes Testing Position Sitting Flexion 180 Abduction 180 External Rotation at 0 degrees Abduction 75 Internal Rotation Behind Back (text) T6 Left Active Shoulder ROM WFL Yes Testing Position Sitting Flexion 180 Abduction 180 External Rotation at 0 degrees Abduction 75 Internal Rotation Behind Back (text) T9 PT-OP-L Special Tests Start: 02/19/22 15:16 Freq: Status: Active Protocol: Document 02/19/22 11:15 DCW (Rec: 02/19/22 16:33 DCW [id number]) Special Tests Shoulder Special Tests Yergason's Biceps Test Results Negative Speed's Biceps Test Results Negative Passive ER Rotator Cuff Test Results Negative Lift-Off Rotator Cuff Test Results Mild soreness left [place]rit[place]tt [place] Impingement Test Results Mild soreness left Empty Can Test Results Negative Drop Arm Rotator Cuff Test Results Negative Belly Press Test Results Mild soreness left AC Joint Compression Test Results Negative PT-OP-M Strength Start: 02/19/22 15:16 Freq: Status: Active Protocol: Document 02/19/22 11:15 DCW (Rec: 02/19/22 16:33 DCW [id number]) Shoulder Strength Shoulder Manual Muscle Testing Right Flexion 5 Normal Abduction (C5) 5 Normal External Rotation 5 Normal Internal Rotation 5 Normal Left Flexion 4+ Good+ Abduction (C5) 4+ Good+ External Rotation 4+ Good+ Internal Rotation 4+ Good+ PT-OP-Q Treatments Start: 02/19/22 15:16 Freq: Status: Active Protocol: Document 03/12/22 16:45 DCW (Rec: 03/12/22 17:29 DCW [id number]) Therapeutic Exercises Sitting Exercises Scalene Stretch Sitting Exercise Name Anterior/posterior scalene stretches Side bilateral Upper Trap Sitting Exercise Name UT stretch Side bilateral Standing Exercises Upper Trap Standing Exercise Name UT self-STM Comments Sock and tennis balls Manual Therapy Treatment Soft Tissue Mobilization Shoulder Body Location L UT, LS, Scalenes, Rhomboids Mobilization Type Rolling,Strumming,Sustained Pressure,Trigger Point Release ,Other Intensity/Depth Moderate Body Position Hooklying Comments manual pin and stretch to UT Isaiah and L LS Cervical Body Location paraspinals, SO Mobilization Type Rolling,Strumming,Sustained Pressure,Trigger Point Release ,Other Intensity/Depth Moderate Body Position Hooklying Comments manual cervical traction 2x30s ; SO release PT-OP-R Modalities Start: 03/02/22 17:45 Freq: Status: Active Protocol: Document 03/02/22 16:45 NBM (Rec: 03/02/22 17:47 NBM [id number]) Hot Pack/Cold Pack Treatment Cold Pack Location L shoulder Patient Position Hooklying Treatment Duration (minutes) 10 Patient Tolerance Good PT-OP-T Assessment and Plan Start: 02/19/22 15:16 Freq: Status: Active Protocol: Document 03/12/22 16:45 DCW (Rec: 03/12/22 17:29 DCW [id number]) Physical Therapy Assessment Goals One Impairment Pt does not have an appropriate home exercise program Short Term Goal (STG) Pt to be independent and compliant with an appropriate HEP STG Duration 03/19/22 Assessment Summary Assessment Pt felt much better following stretching and STM during today's session, happy with HEP plans, looking forward to performing independently. Physical Therapy Plan Frequency and Duration Frequency of Treatment 1-2x/week Duration of treatment (weeks) 4 Plan of Care Start Date 02/19/22 Plan of Care End Date 03/19/22 Therapeutic Interventions Therapeutic Interventions Home Exercise Program,Joint Mobilizations,Patient/ Caregiver Education,Self-Care/ Home Management,Soft Tissue Mobilization,Therapeutic Activities,Therapeutic Exercises Modalities Cold Pack/Ice Massage,Hot Packs Next Visit Focus/Plan Next Note Type Treatment Note Next Visit Plan Provide cervical stretches (LS , UT) and consider for HEP. Shoulder strengthening, HEP review
--- NOTE | 2022-03-18 09:39 | PT.OPDS ---
Current Diagnoses Pain in left shoulder (03/12/22) Visit Care Team Role Provider Type Jeremy Greene MD Attending Provider Physician Family Provider Primary Care Provider Referring Provider Specialty: Family Practice Address: [address] [place] [address], [facility] Email: [email or web address] Visit Number Visit Number 3 Discharge Summary PT-OP-B Current Condition Start: 02/19/22 15:16 Freq: Status: Active Protocol: Document 02/19/22 11:15 DCW (Rec: 02/19/22 15:28 DCW [id number]) Current Condition History of Current Condition Onset Date ~2 month history Current Complaints Left shoulder pain History of Current Condition Pt is a 46 year old female presenting to skilled PT following increased pain ~2 months ago secondary to overuse. 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 Pt reports that since the initial injury, she has improved greatly, and is already nearing her prior baseline. Admits she feels silly coming in for PT, since she is doing so well, but wanted to at least come a few times to figure out what she can do to strengthen her shoulder and prevent this from happening again. Treatment Goals Patient/Caregiver Goals Return to 100% work duties without increased shoulder pain. PT-OP-C Subjective Start: 02/19/22 15:16 Freq: Status: Active Protocol: Document 03/12/22 16:45 DCW (Rec: 03/12/22 17:29 DCW [id number]) OP-PT Subjective Patient Comments Patient Comments Pt reports she is fine, I think it's just going to be more of a management thing. Did some painting yesterday, felt it a little. PT-OP-E Functional Tests Start: 02/19/22 15:16 Freq: Status: Active Protocol: Document 02/19/22 11:15 DCW (Rec: 02/19/22 16:33 DCW [id number]) Functional Tests Apley's Scratch Test Action 1- Left Posterior opposite shoulder Action 1- Right Posterior opposite shoulder Action 2- Left T3 Action 2- Right T3 Action 3- Left T9 Action 3- Right T6 PT-OP-K Range of Motion Start: 02/19/22 15:16 Freq: Status: Active Protocol: Document 02/19/22 11:15 DCW (Rec: 02/19/22 16:33 DCW [id number]) Shoulder Goniometric Range of Motion Shoulder Right Active Shoulder ROM WFL Yes Testing Position Sitting Flexion 180 Abduction 180 External Rotation at 0 degrees Abduction 75 Internal Rotation Behind Back (text) T6 Left Active Shoulder ROM WFL Yes Testing Position Sitting Flexion 180 Abduction 180 External Rotation at 0 degrees Abduction 75 Internal Rotation Behind Back (text) T9 PT-OP-L Special Tests Start: 02/19/22 15:16 Freq: Status: Active Protocol: Document 02/19/22 11:15 DCW (Rec: 02/19/22 16:33 DCW [id number]) Special Tests Shoulder Special Tests Yergason's Biceps Test Results Negative Speed's Biceps Test Results Negative Passive ER Rotator Cuff Test Results Negative Lift-Off Rotator Cuff Test Results Mild soreness left Pritchett [place] Impingement Test Results Mild soreness left Empty Can Test Results Negative Drop Arm Rotator Cuff Test Results Negative Belly Press Test Results Mild soreness left AC Joint Compression Test Results Negative PT-OP-M Strength Start: 02/19/22 15:16 Freq: Status: Active Protocol: Document 02/19/22 11:15 DCW (Rec: 02/19/22 16:33 DCW [id number]) Shoulder Strength Shoulder Manual Muscle Testing Right Flexion 5 Normal Abduction (C5) 5 Normal External Rotation 5 Normal Internal Rotation 5 Normal Left Flexion 4+ Good+ Abduction (C5) 4+ Good+ External Rotation 4+ Good+ Internal Rotation 4+ Good+ PT-OP-T Assessment and Plan Start: 02/19/22 15:16 Freq: Status: Active Protocol: Document 03/18/22 09:38 DCW (Rec: 03/18/22 09:39 DCW [id number]) Physical Therapy Assessment Assessment Summary Assessment Pt phoned clinic, reports she is doing very well, canceled remaining appointments, requested discharge from skilled therapy at this time. Physical Therapy Plan Discharge Physical Therapy Discharge Reasons Patient Request
== END 2022-03-20 09:22 | disposition home or self-care (01) ==
LOC: PHYS 16:45
PROVIDERS: Family Provider Family Medicine; PCP Family Medicine; Referring Provider Family Medicine; Visit Provider Family Medicine
DX: M25.512 Pain in left shoulder (principal)
CPT/HCPCS: 97110; 97140; 97161; 97535

== ENCOUNTER → 2022-03-25 09:44 | Outpatient (CLI) | payer OTHER, SELFPAY ==
--- NOTE | 2022-03-25 | DI.MG.S_ITS ---
BILATERAL DIGITAL SCREENING MAMMOGRAM 3D/2D WITH CAD: 03/25/2022 CLINICAL: Routine screening. Comparison is made to exams dated: 01/29/2020 mammogram, 03/08/2018 mammogram, and 11/20/2016 mammogram - [facility]. Both breasts are extremely dense, which lowers the sensitivity of mammography (category d />75% glandular tissue). Current study was also evaluated with a Computer Aided Detection (CAD) system. No significant masses, calcifications, or other findings are seen in either breast. There has been no significant interval change. IMPRESSION: NEGATIVE There is no mammographic evidence of malignancy. A 1 year screening mammogram is recommended. This exam was interpreted at Station ID: [id number]. NOTE: For mammograms, a report in lay terms will be sent to the patient. Approximately 15% of breast malignancies will not be visualized mammographically. In the management of a palpable breast mass, a negative mammogram must not discourage biopsy of a clinically suspicious lesion. Electronically Signed By: Marc webster/vandana:03/25/2022 14:26:28 copy to: Jeremy Greene letter sent: Normal Exam ACR BI-RADS Category 1: Negative 3341F
== END ==
PROVIDERS: Family Provider Family Medicine; PCP Family Medicine; Referring Provider Family Medicine; Visit Provider Family Medicine
DX: Z12.31 Encounter for screening mammogram for malignant neoplasm of breast (principal)
CPT/HCPCS: 77063; 77067

== ENCOUNTER → 2023-01-26 09:01 | Outpatient (CLI) | payer OTHER, SELFPAY ==
[2023-01-26 10:23] LABS: Appearance Urine UA CLEAR; Bilirubin Urine UA NEGATIVE (NEGATIVE); Color Urine UA YELLOW; Glucose Urine UA NEGATIVE (Negative); Ketones Urine UA NEGATIVE (NEGATIVE); Leukocyte Esterase Urine UA TRACE (NEGATIVE); Nitrite Urine UA NEGATIVE (Negative); Occult Blood Urine UA NEGATIVE (Negative); Protein Urine UA TRACE (Negative); Specific Gravity Urine UA 1.025 (1.000-1.035); Urobilinogen Urine UA 0.2 E.U./dL (0.2)
[2023-01-26 10:51] LABS: Bacteria Urine Moderate (10-30); Culture Indicated Urine Specimen Cultured; RBC Urine 5-10/HPF (0-5/HPF); Squamous Epithelial Cell Urine 1-5 /HPF (0-5/HPF); WBC Urine 10-30/HPF (0-5/HPF)
== END ==
PROVIDERS: Family Provider Family Medicine; PCP Family Medicine; Referring Provider Family Medicine; Visit Provider Family Medicine
DX: R30.0 Dysuria (principal)
CPT/HCPCS: 81003; 81015; 87077; 87086; 87147

== ENCOUNTER → 2023-02-15 16:26 | Outpatient (CLI) | payer OTHER, SELFPAY ==
--- NOTE | 2023-02-15 16:27 | DI.MRI.S_ITS ---
PROCEDURE: MR HEAD/BRAIN WO CON INDICATIONS: dizziness, head pressure TECHNIQUE: Noncontrast axial T1 spin echo, axial T2 fast spin echo, sagittal and axial FLAIR, coronal T2 fast spin echo, axial gradient echo, axial diffusion and ADC through the brain. COMPARISON: None. FINDINGS: Image quality: Excellent. CSF Spaces: Basal cisterns are patent. No extra-axial fluid collections. Ventricles are normal in size and shape. Brain: No intracranial masses or hemorrhage. Larios/white matter interface is normal. Brainstem appears normal. Diffusion-weighted images demonstrate no acute ischemic insult. No chronic ischemic insults. Normal intravascular flow voids are present. Skull and face: Calvarium has normal marrow signal. Orbits appear normal. Sinuses: Sinuses and mastoids are clear. IMPRESSION: Normal MRI of the brain Approved by: Rick Tiwari M.D. on 02/16/2023 at 18:12
== END ==
PROVIDERS: Family Provider Family Medicine; PCP Family Medicine; Referring Provider Family Medicine; Visit Provider Family Medicine
DX: R42 Dizziness and giddiness (principal); R51.9 Headache, unspecified
CPT/HCPCS: 70551

== ENCOUNTER → 2023-03-26 15:19 | Outpatient (CLI) | payer OTHER, SELFPAY ==
--- NOTE | 2023-03-26 15:20 | DI.MG.S_ITS ---
BILATERAL DIGITAL SCREENING MAMMOGRAM 3D/2D WITH CAD: 03/26/2023 CLINICAL: Routine screening. Comparison is made to exams dated: 03/25/2022 mammogram, 01/29/2020 mammogram, and 03/08/2018 mammogram - [facility]. Both breasts are heterogeneously dense, which may obscure small masses (category c / 51-75% glandular tissue). Current study was also evaluated with a Computer Aided Detection (CAD) system. No significant masses, calcifications, or other findings are seen in either breast. There has been no significant interval change. IMPRESSION: NEGATIVE There is no mammographic evidence of malignancy. A 1 year screening mammogram is recommended. Based on the Tyrer Cuzick model (a risk assessment model) the patient's lifetime risk is 10.4% and her 10 year risk is 2.3%. According to the ACR, ACS, and NCCN guidelines, an annual breast MRI exam along with mammogram is recommended if the patient's lifetime risk is 20% or greater. This exam was interpreted at Station ID: [id number]. NOTE: For mammograms, a report in lay terms will be sent to the patient. Approximately 15% of breast malignancies will not be visualized mammographically. In the management of a palpable breast mass, a negative mammogram must not discourage biopsy of a clinically suspicious lesion. Electronically Signed By: Gudelia Nguyen M.D., PH.D ellie/vandana:03/28/2023 14:53:14 copy to: Jeremy Greene letter sent: Normal Exam ACR BI-RADS Category 1: Negative 3341F
== END ==
PROVIDERS: Family Provider Family Medicine; PCP Family Medicine; Referring Provider Family Medicine; Visit Provider Family Medicine
DX: Z12.31 Encounter for screening mammogram for malignant neoplasm of breast (principal)
CPT/HCPCS: 77063; 77067

== ENCOUNTER → 2023-05-12 11:18 | Outpatient (CLI) | payer OTHER, SELFPAY ==
[2023-05-12 12:00] LABS: Add Manual Diff / Slide Review NO; Basophils Absolute Auto 100 /uL (0-100); Eosinophils Absolute Auto 200 /uL (0-450); Eosinophils Percent Auto 3.6 % (2-4); Hematocrit 40.4 % (36-46); Hemoglobin 13.7 g/dL (12.0-16.0); Lymphocytes Absolute Auto 1900 /uL (1100-4500); Lymphocytes Percent Auto 35.6 % (25-40); Mean Corpuscular HGB Conc 33.9 % (30-36); Mean Corpuscular Hemoglobin 30.2 PG (26-34); Monocytes Absolute Auto 300 /uL (0-900); Monocytes Percent Auto 6.1 % (3-14); Neutrophils Absolute Auto 2900 /uL (1500-7000); Neutrophils Percent Auto 53.7 % (50-75); Platelet Count 196 X10^3/uL (150-400); Red Blood Cell Count 4.54 X10^6/uL (4.0-5.2); White Blood Cell Count 5.4 X10^3/uL (4.5-11.0)
[2023-05-12 12:26] LABS: Alanine Aminotransferase 17 IU/L (<35); Albumin 4.3 g/dL (3.5-5.0); Albumin Globulin Ratio 1.2 (1.0-2.8); Alkaline Phosphatase 60 U/L (38-126); Aspartate Aminotransferase 22 IU/L (14-36); BUN Creatinine Ratio 11.9 (6-22); Bilirubin Total 0.6 mg/dL (0.2-1.3); Blood Urea Nitrogen 10 mg/dL (7-17); C-Reactive Protein Quant 0.6 mg/dL (<1.0); Calcium 9.2 mg/dL (8.4-10.2); Carbon Dioxide 28 mmol/L (22-32); Chloride 102 mmol/L (98-107); Estimated Glomerular Filt Rate > 60 mL/min (>60); Globulin 3.5 g/dL (1.7-4.1); Glucose 96 mg/dL (70-100); HEMOLYSIS < 15 (0-50); Potassium 4.3 mmol/L (3.4-5.1); Sodium 138 mmol/L (137-145); Total Protein 7.8 g/dL (6.3-8.2)
[2023-05-12 12:34] LABS: Total Iron Binding Capacity 275 ug/dL (265-497)
[2023-05-12 12:52] LABS: Ferritin 16 ng/mL (11-264)
[2023-05-12 14:40] LABS: Percent Iron Saturation 1 % (15-50)
== END ==
PROVIDERS: Family Provider Family Medicine; PCP Family Medicine; Referring Provider Internal Medicine Gastroenterology; Visit Provider Internal Medicine Gastroenterology
DX: K51.00 Ulcerative (chronic) pancolitis without complications (principal)
CPT/HCPCS: 36415; 80053; 82728; 83550; 85025; 86140

== ENCOUNTER → 2023-08-20 18:23 | Outpatient (CLI) | payer OTHER, SELFPAY | PROVIDERS: Family Provider Family Medicine; PCP Family Medicine; Visit Provider Physician Assistant Medical | DX: Z20.818 Contact with and (suspected) exposure to other bacterial communicable diseases (principal); J02.9 Acute pharyngitis, unspecified | CPT/HCPCS: 87070 ==

== ENCOUNTER → 2024-01-28 13:32 | Outpatient (CLI) | payer OTHER, SELFPAY ==
[2024-01-28 14:35] LABS: Add Manual Diff / Slide Review NO; Basophils Absolute Auto 100 /uL (0-100); Eosinophils Absolute Auto 100 /uL (0-450); Hematocrit 41.5 % (36-46); Hemoglobin 14.1 g/dL (12.0-16.0); Lymphocytes Absolute Auto 2000 /uL (1100-4500); Lymphocytes Percent Auto 35.6 % (25-40); Mean Corpuscular Hemoglobin 30.5 PG (26-34); Mean Corpuscular Volume 89.7 fL (80-100); Monocytes Absolute Auto 300 /uL (0-900); Monocytes Percent Auto 5.3 % (3-14); Neutrophils Absolute Auto 3200 /uL (1500-7000); Neutrophils Percent Auto 57.1 % (50-75); Platelet Count 228 X10^3/uL (150-400); Red Blood Cell Count 4.62 X10^6/uL (4.0-5.2); White Blood Cell Count 5.7 X10^3/uL (4.5-11.0)
[2024-01-28 15:10] LABS: Alanine Aminotransferase 17 IU/L (<35); Albumin 4.6 g/dL (3.5-5.0); Albumin Globulin Ratio 1.5 (1.0-2.8); Alkaline Phosphatase 56 U/L (38-126); Aspartate Aminotransferase 20 IU/L (14-36); BUN Creatinine Ratio 14.7 (6-22); Bilirubin Total 0.5 mg/dL (0.2-1.3); Blood Urea Nitrogen 11 mg/dL (7-17); C-Reactive Protein Quant < 0.5 mg/dL (<1.0); Calcium 9.1 mg/dL (8.4-10.2); Carbon Dioxide 26 mmol/L (22-32); Chloride 105 mmol/L (98-107); Estimated Glomerular Filt Rate > 60 mL/min (>60); Globulin 3.1 g/dL (1.7-4.1); Glucose 101 mg/dL (70-100); HEMOLYSIS < 15 (0-50); Potassium 3.8 mmol/L (3.4-5.1); Sodium 140 mmol/L (137-145); Total Protein 7.7 g/dL (6.3-8.2)
[2024-01-28 15:23] LABS: HEMOLYSIS < 15 (0-50); Iron 136 ug/dL (37-170)
[2024-01-28 15:33] LABS: Percent Iron Saturation 46 % (15-50); Total Iron Binding Capacity 297 ug/dL (265-497); Transferrin 245 mg/dL (206-381)
[2024-01-28 15:37] LABS: Ferritin 22 ng/mL (11-264)
== END ==
PROVIDERS: Family Provider Family Medicine; PCP Family Medicine; Referring Provider Internal Medicine Gastroenterology; Visit Provider Internal Medicine Gastroenterology
DX: K51.90 Ulcerative colitis, unspecified, without complications (principal)
CPT/HCPCS: 36415; 80053; 82728; 83540; 83550; 85025; 86140

== ENCOUNTER → 2024-12-30 08:14 | Outpatient (CLI) | payer BC, SELFPAY ==
[2024-12-30 09:31] LABS: Add Manual Diff / Slide Review NO; Hematocrit 40.0 % (36-46); Hemoglobin 13.6 g/dL (12.0-16.0); Lymphocytes Absolute Auto 2000 /uL (1100-4500); Mean Corpuscular HGB Conc 34.2 % (30-36); Mean Corpuscular Hemoglobin 30.5 PG (26-34); Mean Corpuscular Volume 89.2 fL (80-100); Platelet Count 187 X10^3/uL (150-400)
[2024-12-30 10:07] LABS: Alanine Aminotransferase 14 IU/L (<35); Albumin 4.0 g/dL (3.5-5.0); Albumin Globulin Ratio 1.5 (1.0-2.8); Alkaline Phosphatase 50 U/L (38-126); Blood Urea Nitrogen 13 mg/dL (7-17); Calcium 9.0 mg/dL (8.4-10.2); Carbon Dioxide 27 mmol/L (22-32); Chloride 104 mmol/L (98-107); Estimated Glomerular Filt Rate > 60 mL/min (>60); Globulin 2.7 g/dL (1.7-4.1); Glucose 82 mg/dL (70-99); HEMOLYSIS < 15 (0-50); Potassium 4.0 mmol/L (3.4-5.1); Sodium 140 mmol/L (137-145); Total Protein 6.7 g/dL (6.3-8.2)
== END ==
LOC: LAB 08:17
PROVIDERS: Family Provider Family Medicine; PCP Family Medicine; Referring Provider Internal Medicine Gastroenterology; Visit Provider Internal Medicine Gastroenterology
DX: D50.9 Iron deficiency anemia, unspecified (principal); K92.1 Melena; R19.7 Diarrhea, unspecified
CPT/HCPCS: 36415; 80053; 85025; 86140; 87045; 87177; 87328

== ENCOUNTER 2025-02-02 17:57 | Emergency (ER) | payer BC, SELFPAY ==
[2025-02-02] VITALS (10 sets, daily range): BP systolic 94–133; BP diastolic 58–75; PULSE 67–92; RESP 16–20; TEMP 36.9; O2SAT 92–96; BMI 28.1
--- NOTE | 2025-02-02 18:14 | DI.CT.S_ITS ---
PROCEDURE: CT ABDOMEN PELVIS W CON INDICATIONS: ulcerative colitis flare x 6 weeks TECHNIQUE: After the administration of intravenous contrast, axial sections acquired from the lung bases to the pubic symphysis. Coronal and sagittal reformats were performed. For radiation dose reduction, the following was used: automated exposure control, adjustment of mA and/or kV according to patient size. COMPARISON: [facility], CT, ABDOMEN/PELVIS WITH CONTRAST, 09/11/2015, 15:59. FINDINGS: Image quality: Diagnostic. Lower Chest: No significant findings. ABDOMEN: Liver: A few small cysts. Gallbladder: No radiopaque gallstones or wall thickening. Biliary ducts: No biliary dilation. Pancreas: No ductal dilation. Spleen: Size is within normal limits. Adrenal Glands: No adrenal nodules. Kidneys and Ureters: No hydronephrosis. No solid mass. No complex renal cystic lesion which requires follow up. Stomach and Bowel: Inflammatory change about the rectum and distal colon extending at least to the level of the splenic flexure. Mild wall thickening. No penetrating disease or focal stricture. There is increased stool in the proximal colon. The appendix is not dilated. No small bowel obstruction. The stomach is not distended. Peritoneum: No ascites. No pneumoperitoneum. Ventral Wall: Small umbilical hernia. Abdominal Nodes: No retroperitoneal or mesenteric adenopathy by size criteria. Vessels: Aorta and inferior vena cava are normal in size. Portal vein is patent. PELVIS: Pelvic Organs: Anteverted uterus. Left anterior partially exophytic fibroid measuring 3.3 cm. Bladder: Mostly decompressed. Mass effect on the urinary bladder from the fibroid. No stone. Pelvic Nodes: A few shotty mesorectal lymph nodes. Miscellaneous: No inguinal hernias are seen. Bones: No aggressive osseous abnormality. IMPRESSION: 1. Inflammatory change about the rectum and distal colon extending at least to the level of the splenic flexure. Findings in keeping with ulcerative colitis. 2. Increased stool in the proximal colon suggesting constipation. 3. No small bowel obstruction. No fluid collection. Dictated by: Edu Pinto M.D. on 02/02/2025 at 21:51 Approved by: Edu Pinto M.D. on 02/02/2025 at 21:59
[2025-02-02 19:45] LABS: Add Manual Diff / Slide Review NO; Hematocrit 40.2 % (36-46); Hemoglobin 13.9 g/dL (12.0-16.0); Lymphocytes Absolute Auto 2000 /uL (1100-4500); Mean Corpuscular HGB Conc 34.6 % (30-36); Mean Corpuscular Hemoglobin 30.9 PG (26-34); Mean Corpuscular Volume 89.2 fL (80-100); Platelet Count 315 X10^3/uL (150-400)
[2025-02-02 19:55] LABS: Culture Indicated Urine Specimen Cultured
[2025-02-02 19:57] LABS: Ictotest Urine Negative (Negative)
[2025-02-02 20:03] LABS: Alanine Aminotransferase 14 IU/L (<35); Albumin 4.1 g/dL (3.5-5.0); Albumin Globulin Ratio 1.2 (1.0-2.8); Alkaline Phosphatase 67 U/L (38-126); Blood Urea Nitrogen 14 mg/dL (7-17); Calcium 8.7 mg/dL (8.4-10.2); Carbon Dioxide 25 mmol/L (22-32); Chloride 102 mmol/L (98-107); Estimated Glomerular Filt Rate > 60 mL/min (>60); Globulin 3.3 g/dL (1.7-4.1); Glucose 109 mg/dL (70-99); HEMOLYSIS 19 (0-50); Lipase 59 U/L (23-300); Potassium 3.8 mmol/L (3.4-5.1); Sodium 135 mmol/L (137-145); Total Protein 7.4 g/dL (6.3-8.2)
--- NOTE | 2025-02-02 20:04 | PC.NURSE ---
Pt sitting in ED stretcher speaking on phone, hangs up phone and engages appropriately with RN. Pt states generalized abd pain, bloating x weeks with bloody diarrhea x about 4. States not quite matthew red blood. States has been on Prednisone 40mg QAM which helps the pain only through the morning and by midmorning pain has returned. Pt denies n/v, or other symptoms. Pt connected to pulse ox and blood pressure monitors with alarms on and audible. Call light within reach. Continued plan of care discussed. No further requests or complaints at this time.
--- NOTE | 2025-02-02 20:21 | PC.NURSE ---
Pt to imaging via wheelchair with multimedia technician
--- NOTE | 2025-02-02 21:54 | ED.GIBLEED ---
HPI - GI Bleed General Chief complaint: GI Bleed Stated complaint: UC flare, ongoing 6wks Time Seen by Provider: 02/02/25 18:14 Source: patient Mode of arrival: Ambulatory Limitations: no limitations History of Present Illness HPI Narrative: 49-year-old female with a history of ulcerative colitis was on Remicade in the past this was stopped by her insurance company was on other injectable but had complications in his currently only taking prednisone. Patient presents with a complaint of an ulcerative colitis flare for the past 6 weeks. She states she has had abdominal pain, frequent bloody stools, she states that the rectal areas fairly raw. She denies fevers or chills. Denies any nausea or vomiting. She states pain right now is currently not so bad but last night was quite intense. Patient states he has has a little bit of increased sense of urgency but no frequency with her bladder no dysuria. She denies flank pain. Patient states she did try budesonide for several days but did not help her symptoms. She is supposed to be doing a prednisone taper but has been taking 40 mg daily for the past week. She states she has had a prior but no other surgeries. No known drug allergies. She follows with Gastroenterology in [place]. Dr. Greene is her primary care physician. Related Data Home Medications ?Medication ?Instructions ?Recorded ?Confirmed cholecalciferol (vitamin D3) 25 1,000 unit PO DAILY 01/31/18 11/17/24 mcg (1,000 unit) capsule lactobacillus combination no.8 3 3,000 mmu cells PO DAILY 01/31/18 11/17/24 billion cell capsule (Adult Probiotic) Previous Rx's ?Medication ?Instructions ?Recorded valacyclovir 500 mg tablet 500 mg PO DAILY #90 tabs 10/21/23 clobetasol 0.05 % topical ointment 1 applic topical DAILY #60 grams 11/17/24 Allergies Allergy/AdvReac Type Severity Reaction Status Date / Time tramadol (TRAMADOL) Allergy Mild NAUSEA,VOMI Verified 02/02/25 18:09 TING,DIAPHO RESIS hydrocodone (HYDROCODONE) Allergy Unknown NAUSEA Verified 02/02/25 18:09 sacubitril (From Entresto) AdvReac Severe brain fog Verified 02/02/25 18:09 valsartan (From Entresto) AdvReac Severe brain fog Verified 02/02/25 18:09 budesonide AdvReac Intermediate Fatigued Verified 02/02/25 18:09 enflectra AdvReac Intermediate vertigo Uncoded 02/02/25 18:09 remicaid AdvReac Migraine Uncoded 02/02/25 18:09 Review of Systems Review of Systems ROS Unobtainable: All systems reviewed & are unremarkable except as noted in HPI and below Patient History Medical History COVID-19 Vulvodynia Herpes Ulcerative colitis Bandemia Surgical History History of surgery (~1991) History of third molar tooth extraction (~1987) Status post delivery (~1997) Social History marital status: Smoking Status: Never smoker alcohol intake: never substance use type: does not use Smoking Status: Never smoker Exam Narrative Exam Narrative: GENERAL: Alert and oriented x three, mild distress HEENT: Head normocephalic, atraumatic, EOMI, pupils reactive, face symmetric, moist mucous membranes NECK: Supple, full range of motion CARDIOVASCULAR: Regular rate and rhythm without murmurs, rubs or gallops. RESPIRATORY: Breath sounds equal bilaterally, no wheezes rales or rhonchi. ABDOMEN: Soft, nontender. Nondistended. Normoactive bowel sounds all 4 quadrants. No guarding or rebound, rigidity, no mass : No CVA tenderness EXTREMITIES: Normal range of motion, no clubbing or edema. Neurovascularly intact NEUROLOGICAL: Cranial nerves II through XII grossly intact. Moving all extremities SKIN: Warm, dry, no petechiae, no rashes or lesions. Initial Vital Signs Initial Vital Signs: Vital Signs Temperature 98.5 F 02/02/25 18:04 Pulse Rate 92 H 02/02/25 18:04 Respiratory Rate 18 02/02/25 18:04 Blood Pressure 133/75 02/02/25 18:04 Pulse Oximetry 93 02/02/25 18:04 Oxygen Delivery Method Room Air 02/02/25 18:04 Course Orders Ordered: ED Orders 02/02/25 18:14 CT abdomen pelvis w con Stat 02/02/25 19:27 Ictotest Urine Stat Urine Culture Stat Urine Microscopic Stat 02/02/25 19:37 Complete Blood Count AUTO DIFF Stat Comprehensive Metabolic Panel Stat Lipase Stat Vital Signs Vital signs: Vital Signs - 8 hr 02/02/25 18:04 02/02/25 19:59 02/02/25 20:00 Temperature 98.5 F Pulse Rate 92 H 77 77 Respiratory Rate 18 20 Blood Pressure 133/75 Pulse Oximetry 93 96 95 Oxygen Delivery Method Room Air Room Air 02/02/25 20:00 02/02/25 20:30 02/02/25 20:31 Temperature Pulse Rate 81 Respiratory Rate Blood Pressure 99/69 113/68 Pulse Oximetry 95 Oxygen Delivery Method 02/02/25 20:31 02/02/25 20:40 02/02/25 20:40 Temperature Pulse Rate 71 73 Respiratory Rate Blood Pressure 114/72 Pulse Oximetry 95 95 Oxygen Delivery Method Room Air Room Air 02/02/25 21:00 02/02/25 21:00 02/02/25 21:30 Temperature Pulse Rate 67 Respiratory Rate 16 Blood Pressure 108/68 94/58 L Pulse Oximetry 95 Oxygen Delivery Method Room Air 02/02/25 21:30 02/02/25 21:44 02/02/25 21:44 Temperature Pulse Rate 68 74 Respiratory Rate 18 Blood Pressure 113/63 Pulse Oximetry 92 93 Oxygen Delivery Method Room Air Room Air 02/02/25 22:23 Temperature Pulse Rate 70 Respiratory Rate 18 Blood Pressure 104/64 Pulse Oximetry 95 Oxygen Delivery Method Room Air MDM - GI Bleed Lab Data 02/02/25 19:37 02/02/25 19:37 Labs: Lab Results 02/02/25 02/02/25 Range/Units 19:27 19:37 WBC 10.9 (4.5-11.0) X10^3/uL RBC 4.51 (4.0-5.2) X10^6/uL Hgb 13.9 (12.0-16.0) g/dL Hct 40.2 (36-46) % MCV 89.2 (80-100) fL MCH 30.9 (26-34) PG MCHC 34.6 (30-36) % RDW 13.8 (11.6-14.8) % Plt Count 315 (150-400) X10^3/uL Neut % (Auto) 74.1 (50-75) % Lymph % (Auto) 18.2 L (25-40) % [place] % (Auto) 7.2 (3-14) % Eos % (Auto) 0.2 L (2-4) % Baso % (Auto) 0.3 (0-2) % Neut # (Auto) 8100 H (5703-7411) /uL Lymph # (Auto) 2000 (4291-5300) /uL [place] # (Auto) 800 (0-900) /uL Eos # (Auto) 0 (0-450) /uL Baso # (Auto) 0 (0-100) /uL Sodium 135 L (137-145) mmol/L Potassium 3.8 (3.4-5.1) mmol/L Chloride 102 (98-107) mmol/L Carbon Dioxide 25 (22-32) mmol/L BUN 14 (7-17) mg/dL Creatinine 0.95 (0.52-1.04) mg/dL Estimated GFR > 60 (>60) mL/min BUN/Creatinine Ratio 14.7 (6-22) Glucose 109 H (70-99) mg/dL Calcium 8.7 (8.4-10.2) mg/dL Total Bilirubin 0.5 (0.2-1.3) mg/dL AST 18 (14-36) IU/L ALT 14 (<35) IU/L Alkaline Phosphatase 67 (38-126) U/L Total Protein 7.4 (6.3-8.2) g/dL Albumin 4.1 (3.5-5.0) g/dL Globulin 3.3 (1.7-4.1) g/dL Albumin/Globulin Ratio 1.2 (1.0-2.8) Lipase 59 (23-300) U/L Ur Bilirubin Confirm Negative (Negative) Urine RBC 0-1/hpf (0-5/HPF) Urine WBC 1-5/hpf (0-5/HPF) Ur Squamous Epith Cells 5-10 /hpf H (0-5/HPF) Ur Transition Epith Cell 0-1/hpf (0-5/HPF) Calcium Oxalate Crystal Many H Amorphous Sediment 1+ Urine Bacteria Many (>30) H (None) Urine Mucus 4+ H (Negative) Ur Culture Indicated? Specimen cultured Vol Urine Centrifuged 10ml (spun) Urine Dip Bedside Urine Glucose Negative Bedside Urine Bilirubin + 1 Bedside Urine Ketone +/- 5 Urine Specific [place] 1.020 Bedside Urine Occult Blood + Bedside Urine pH 6.0 Bedside Urine Protein - Negative Bedside Urine Urobilinogen - Negative Bedside Urine Nitrite - Negative Bedside Urine Leukocytes + 70 Esterase ECG Data Attestation: I personally reviewed and interpreted this ECG as follows: MDM Narrative Medical decision making narrative: CBC is appropriate with a normal white count, hemoglobin and platelets, sodium is 135 electrolytes BUN creatinine are otherwise appropriate glucose is 109 LFTs are normal lipase is normal. Point of care is positive for leukocyte esterase. Positive for blood. Urine shows 1 red cell 1-5 white cells 5-10 squamous 1 transitional many oxalate crystals many bacteria. CT abdomen pelvis, telemetry change of the rectum and distal colon extending at least the level of the splenic flexure findings in keeping with the ulcerative colitis. No penetrating disease or focal stricture increased stool in the proximal colon appendix is not dilated no small-bowel obstruction some ext not distended. Increased stool in the proximal colon suggesting constipation no small-bowel obstruction no fluid collection. Pelvic organs show left anterior partially exophytic fibroid measuring 3.3 cm. There some mass effect on the bladder from the fibroid. Reviewed findings with the patient. Did offer to call her podiatrist orthopedic but she will follow up with them on Wednesday. She states she has plenty of prednisone at this time. Reviewed all of her findings. Discussed return precautions. Images were pushed to [facility] in [place]. Discharge Plan Departure Patient Disposition: Home Clinical Impression: Ulcerative colitis, Fibroid Instructions: DI for Ulcerative Colitis Activity Restrictions/Additional Instructions: Follow up with your podiatrist orthopedic. Your imaging today does show inflammatory changes of the rectum and distal colon to the level of the splenic flexure, there was no penetrating disease or focal stricture on your imaging. Incidentally there is a left anterior fibroid measuring 3.3 cm that does push on the bladder. Please return for fevers, new or worsening abdominal back or flank pain, persistent vomiting, increasing bloody stools, lightheadedness or passing out or other new or concerning changes. Prescriptions: No Action valacyclovir 500 mg tablet 500 mg PO DAILY Qty: 90 3RF cholecalciferol (vitamin D3) 1,000 unit capsule 1,000 unit PO DAILY lactobacillus combination no.8 [Adult Probiotic] 3 billion cell capsule 3,000 mmu cells PO DAILY clobetasol 0.05 % ointment 1 applic topical DAILY Qty: 60 3RF Referrals: Jeremy Greene MD [Primary Care Provider, Family Practice] Stand Alone Forms: Patient Portal/API
--- NOTE | 2025-02-02 22:03 | PC.NURSE ---
Pt ambulatory to restroom without difficulty or assistance
== END 2025-02-02 22:25 | disposition home or self-care (01) ==
PROVIDERS: Emergency Provider Emergency Medicine; Family Provider Family Medicine; PCP Family Medicine
DX: K51.90 Ulcerative colitis, unspecified, without complications (principal); D21.9 Benign neoplasm of connective and other soft tissue, unspecified
CPT/HCPCS: 36415; 74177; 80053; 81003; 81015; 83690; 85025; 87086; 99283; 99284; Q9967

== ENCOUNTER → 2025-02-15 15:53 | Outpatient (CLI) | payer BC, SELFPAY ==
[2025-02-15 17:31] LABS: Add Manual Diff / Slide Review NO; Hematocrit 35.8 % (36-46); Hemoglobin 12.3 g/dL (12.0-16.0); Lymphocytes Absolute Auto 900 /uL (1100-4500); Mean Corpuscular HGB Conc 34.3 % (30-36); Mean Corpuscular Hemoglobin 30.1 PG (26-34); Mean Corpuscular Volume 87.7 fL (80-100); Platelet Count 403 X10^3/uL (150-400)
== END ==
PROVIDERS: Family Provider Family Medicine; PCP Family Medicine; Referring Provider Physician Assistant; Visit Provider Physician Assistant
DX: K51.90 Ulcerative colitis, unspecified, without complications (principal)
CPT/HCPCS: 36415; 85025

== ENCOUNTER 2025-02-19 06:44 | Emergency (ER) | payer BC, SELFPAY ==
[2025-02-19 07:08] VITALS: BP 114/66; PULSE 78; RESP 16; TEMP 36.9; O2SAT 96; BMI 28.3
--- NOTE | 2025-02-19 07:22 | EKG_ITS ---
[address] [address] Test Date: 2025-02-19 Pat Name: Lucia Shi Department: [facility] Room: Gender: Female Client Liaison: MARINO : 1975 Requested By: Order Number: [id number] Reading MD: Vishnu Kimble MD Measurements Intervals Clubb Rate: 65 P: 57 MA: 154 QRS: 42 QRSD: 86 T: 34 QT: 368 QTc: 382 Interpretive Statements Normal sinus rhythm Electronically Signed On 02-19-2025 11:11:01 PST by Vishnu Kimble MD
[2025-02-19 07:44] LABS: Alanine Aminotransferase 20 IU/L (<35); Albumin 3.6 g/dL (3.5-5.0); Albumin Globulin Ratio 1.2 (1.0-2.8); Alkaline Phosphatase 50 U/L (38-126); Blood Urea Nitrogen 10 mg/dL (7-17); Calcium 8.5 mg/dL (8.4-10.2); Carbon Dioxide 26 mmol/L (22-32); Chloride 103 mmol/L (98-107); Estimated Glomerular Filt Rate > 60 mL/min (>60); Globulin 3.0 g/dL (1.7-4.1); Glucose 93 mg/dL (70-99); HEMOLYSIS < 15 (0-50); Lipase 59 U/L (23-300); Potassium 3.8 mmol/L (3.4-5.1); Sodium 138 mmol/L (137-145); Total Protein 6.6 g/dL (6.3-8.2)
[2025-02-19 07:54] LABS: Add Manual Diff / Slide Review NO; Hematocrit 34.7 % (36-46); Hemoglobin 11.8 g/dL (12.0-16.0); Lymphocytes Absolute Auto 2900 /uL (1100-4500); Mean Corpuscular HGB Conc 33.9 % (30-36); Mean Corpuscular Hemoglobin 29.8 PG (26-34); Mean Corpuscular Volume 87.8 fL (80-100); Platelet Count 416 X10^3/uL (150-400)
--- NOTE | 2025-02-19 09:44 | ED.ABDPAIN ---
HPI - Abdominal Pain General Chief Complaint: Abdominal Pain Stated Complaint: Per patient, Having a UC flare up Time Seen by Provider: 02/19/25 09:35 Source: patient Mode of arrival: Ambulatory History of Present Illness HPI narrative: 49 years old female with history of ulcerative colitis on prednisone 40 mg daily for the last 3 weeks came today complaining of abdominal pain, nausea vomiting, bloody diarrhea especially after 2:00 a.m. in the morning about every 1-2 hours then got better after prednisone at 8:00 a.m.. The symptom has been ongoing for the last 2 month. She was here in our ED and CT scan abdomen and pelvis on 02/02/2025 inflammatory changes at the rectum and distal colon extending to the splenic flexure consistent with ulcerative colitis. She also reported generalized weakness but denied any dizziness, loss of consciousness, chest pain, shortness of breath, fever, runny nose, sore throat, coughing, urine problem. Related Data Home Medications ?Medication ?Instructions ?Recorded ?Confirmed cholecalciferol (vitamin D3) 25 1,000 unit PO DAILY 01/31/18 02/15/25 mcg (1,000 unit) capsule lactobacillus combination no.8 3 3,000 mmu cells PO DAILY 01/31/18 02/15/25 billion cell capsule (Adult Probiotic) hydrocortisone acetate 25 mg 25 mg NV 3XD 02/15/25 02/15/25 rectal suppository (Anucort-HC) prednisone 10 mg tablet 40 mg PO DAILY 02/15/25 02/15/25 Previous Rx's ?Medication ?Instructions ?Recorded valacyclovir 500 mg tablet 500 mg PO DAILY #90 tabs 10/21/23 clobetasol 0.05 % topical ointment 1 applic topical DAILY #60 grams 11/17/24 Allergies Allergy/AdvReac Type Severity Reaction Status Date / Time tramadol (TRAMADOL) Allergy Mild NAUSEA,VOMI Verified 02/19/25 07:21 TING,DIAPHO RESIS hydrocodone (HYDROCODONE) Allergy Unknown NAUSEA Verified 02/19/25 07:21 sacubitril (From Entresto) AdvReac Severe brain fog Verified 02/19/25 07:21 valsartan (From Entresto) AdvReac Severe brain fog Verified 02/19/25 07:21 budesonide AdvReac Intermediate Fatigued Verified 02/19/25 07:21 enflectra AdvReac Intermediate vertigo Uncoded 02/19/25 07:21 remicaid AdvReac Migraine Uncoded 02/19/25 07:21 Review of Systems Review of Systems Narrative: Positive for bloody diarrhea, abdominal pain, nausea vomiting. Negative for chest pain, shortness of breath, fever, runny nose, sore throat, coughing, urine problem, dizziness, loss of consciousness. Patient History Medical History COVID-19 Vulvodynia Herpes Ulcerative colitis Bandemia Surgical History History of surgery (~1991) History of third molar tooth extraction (~1987) Status post delivery (~1997) Social History marital status: Smoking Status: Never smoker alcohol intake: never substance use type: does not use Smoking Status: Never smoker Exam Narrative Exam Narrative: GENERAL: Alert awake without acute distress. HEAD: Atraumatic. Normocephalic. NECK: Trachea midline. Non tender CARDIOVASCULAR: Regular rate and rhythm without murmurs, gallops, or rubs. RESPIRATORY: Clear to auscultation. Breath sounds equal bilaterally. No wheezes, rales, or rhonchi. GASTROINTESTINAL: Generalized mild tenderness to palpation without guarding or rebound tenderness. Mild distention. Decreased bowel sounds. EXTREMITIES: No edema or joint tenderness. BACK: Nontender without deformity or crepitance. No flank tenderness. NEURO: AOx3. SKIN: No rash or erythema of visible areas Initial Vital Signs Initial Vital Signs: Vital Signs Temperature 98.4 F 02/19/25 07:08 Pulse Rate 78 02/19/25 07:08 Respiratory Rate 16 02/19/25 07:08 Blood Pressure 114/66 02/19/25 07:08 Pulse Oximetry 96 02/19/25 07:08 Oxygen Delivery Method Room Air 02/19/25 07:08 Course Orders Ordered: Discontinued Medications Methylprednisolone (Methylprednisolone Succ 125 Mg/2 Ml Vial) 60 mg IV NOW ONE Stop: 02/19/25 09:56 Last Admin: 02/19/25 10:10 Dose: 60 mg Documented By: CK Ondansetron HCl (Ondansetron 4 Mg/2 Ml Inj) 4 mg IV NOW PRN PRN Reason: Nausea And Vomiting Ondansetron HCl (Ondansetron 4 Mg Odt) 4 mg PO NOW PRN PRN Reason: Nausea And Vomiting Vital Signs Vital signs: Vital Signs - 8 hr 02/19/25 07:08 Temperature 98.4 F Pulse Rate 78 Respiratory Rate 16 Blood Pressure 114/66 Pulse Oximetry 96 Oxygen Delivery Method Room Air MDM - Abdominal Pain Lab Data 02/19/25 07:25 02/19/25 07:25 Labs: Lab Results 02/19/25 Range/Units 07:25 WBC 9.6 (4.5-11.0) X10^3/uL RBC 3.96 L (4.0-5.2) X10^6/uL Hgb 11.8 L (12.0-16.0) g/dL Hct 34.7 L (36-46) % MCV 87.8 (80-100) fL MCH 29.8 (26-34) PG MCHC 33.9 (30-36) % RDW 13.6 (11.6-14.8) % Plt Count 416 H (150-400) X10^3/uL Neut % (Auto) 63.4 (50-75) % Lymph % (Auto) 29.8 (25-40) % [place] % (Auto) 5.3 (3-14) % Eos % (Auto) 1.0 L (2-4) % Baso % (Auto) 0.5 (0-2) % Neut # (Auto) 6100 (2092-8591) /uL Lymph # (Auto) 2900 (3065-4800) /uL [place] # (Auto) 500 (0-900) /uL Eos # (Auto) 100 (0-450) /uL Baso # (Auto) 0 (0-100) /uL Sodium 138 (137-145) mmol/L Potassium 3.8 (3.4-5.1) mmol/L Chloride 103 (98-107) mmol/L Carbon Dioxide 26 (22-32) mmol/L BUN 10 (7-17) mg/dL Creatinine 0.85 (0.52-1.04) mg/dL Estimated GFR > 60 (>60) mL/min BUN/Creatinine Ratio 11.8 (6-22) Glucose 93 (70-99) mg/dL Calcium 8.5 (8.4-10.2) mg/dL Total Bilirubin 0.3 (0.2-1.3) mg/dL AST 18 (14-36) IU/L ALT 20 (<35) IU/L Alkaline Phosphatase 50 (38-126) U/L Total Protein 6.6 (6.3-8.2) g/dL Albumin 3.6 (3.5-5.0) g/dL Globulin 3.0 (1.7-4.1) g/dL Albumin/Globulin Ratio 1.2 (1.0-2.8) Lipase 59 (23-300) U/L Point of care testing: Urine Dip Bedside Urine Glucose Negative Bedside Urine Bilirubin - Negative Bedside Urine Ketone - Negative Urine Specific [place] 1.000 Bedside Urine Occult Blood - Negative Bedside Urine pH 7.5 Bedside Urine Protein - Negative Bedside Urine Urobilinogen - Negative Bedside Urine Nitrite - Negative Bedside Urine Leukocytes - Negative Esterase ECG Data Interpretation: Normal sinus rhythm at 65 beats per minute without ischemic ST-T changes. No prolonged QT. Normal axis. MDM Narrative Medical decision making narrative: 49 years old female with history of ulcerative colitis on prednisone 40 mg daily for the last 3 weeks came today complaining of abdominal pain, nausea vomiting, bloody diarrhea especially after 2:00 a.m. in the morning about every 1-2 hours then got better after prednisone at 8:00 a.m.. The symptom has been ongoing for the last 2 month. She was here in our ED and CT scan abdomen and pelvis on 02/02/2025 inflammatory changes at the rectum and distal colon extending to the splenic flexure consistent with ulcerative colitis. She also reported generalized weakness but denied any dizziness, loss of consciousness, chest pain, shortness of breath, fever, runny nose, sore throat, coughing, urine problem. Her abdominal exam showed mild tenderness on palpation without guarding or rebound tenderness. Mild distention. Her CV exam, lung exam were normal. Her CBC showed no leukocytosis but hemoglobin was 11.8. Her hemoglobin on 02/15/2025 was 12.3. His CMP was normal. Her EKG showed normal sinus rhythm at 65 beats per minute without ischemic ST-T changes. Her urine dipstick was normal. 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 Jarrett recommended trying Solu-Medrol 45 mg IV and have the patient call back the office since the patient and the sandfill operator surface has already discussed the next plan about new biologic medicine. She was given Solu-Medrol 60 mg IV and actually to follow up with her sandfill operator surface outpatient. Return to the ED precautions was given. She agree with the plan. Discharge Plan Departure Patient Disposition: Home Clinical Impression: Ulcerative colitis, acute Instructions: DI for Ulcerative Colitis Activity Restrictions/Additional Instructions: Please continue your prednisone. Please drink plenty of fluid. Please contact your sandfill operator surface for further evaluation/treatment. Please come back to the emergency room if any worsening symptoms including but not limited to chest pain, shortness of breath, dizziness, worsening pain, persistent vomiting, dehydration, worsening bleeding. Prescriptions: No Action valacyclovir 500 mg tablet 500 mg PO DAILY Qty: 90 3RF cholecalciferol (vitamin D3) 1,000 unit capsule 1,000 unit PO DAILY lactobacillus combination no.8 [Adult Probiotic] 3 billion cell capsule 3,000 mmu cells PO DAILY prednisone 10 mg tablet 40 mg PO DAILY hydrocortisone acetate [Anucort-HC] 25 mg suppository 25 mg NV 3XD clobetasol 0.05 % ointment 1 applic topical DAILY Qty: 60 3RF Referrals: Jeremy Greene MD [Primary Care Provider, Family Practice] Stand Alone Forms: Patient Portal/API
[2025-02-19] MEDS: methylPREDNISolone succ 125 MG/2 ML VIAL 60 MG IV (10:10)
[2025-02-19 10:22] VITALS: BP 105/73; PULSE 66; RESP 16; O2SAT 99
== END 2025-02-19 10:27 | disposition home or self-care (01) ==
PROVIDERS: Emergency Provider Emergency Medicine; Family Provider Family Medicine; PCP Family Medicine
DX: K51.90 Ulcerative colitis, unspecified, without complications (principal); R11.2 Nausea with vomiting, unspecified
CPT/HCPCS: 80053; 81003; 83690; 85025; 93005; 96374; 99283; 99284; J2919

== ENCOUNTER → 2025-03-02 09:13 | Outpatient (CLI) | payer OTHER, SELFPAY ==
[2025-03-02 11:01] LABS: HEMOLYSIS < 15 (0-50); Iron 52 ug/dL (37-170)
[2025-03-02 11:11] LABS: Percent Iron Saturation 18 % (15-50); Total Iron Binding Capacity 285 ug/dL (265-497); Transferrin 254 mg/dL (206-381)
[2025-03-02 11:37] LABS: Ferritin 15 ng/mL (11-264)
[2025-03-02 11:38] LABS: Hepatitis B Surface Antigen NEGATIVE s/c (NEGATIVE)
[2025-03-02 12:08] LABS: Folate 10.1 ng/mL (2.76-20.0); Vitamin B12 466 pg/mL (239-931)
[2025-03-05 15:09] LABS: QuantiFERON Mitogen Value 3.65 IU/mL (.); QuantiFERON Nil Value 0.07 IU/mL (.); QuantiFERON TB Gold Plus Negative (Negative); QuantiFERON TB1 Ag Value 0.08 IU/mL (.); QuantiFERON TB2 Ag Value 0.08 IU/mL (.)
[2025-03-06 03:12] LABS: Hepatitis B Surf Ab Qualitativ Non Reactive (.)
== END ==
PROVIDERS: Family Provider Family Medicine; PCP Family Medicine; Referring Provider Internal Medicine Gastroenterology; Visit Provider Internal Medicine Gastroenterology
DX: K51.00 Ulcerative (chronic) pancolitis without complications (principal)
CPT/HCPCS: 36415; 82607; 82728; 82746; 83540; 83550; 86480; 86706; 87340